=== PATIENT | female | born 1955 | race African-American/Black ===

== ENCOUNTER 2017-01-15 20:32 | Inpatient (IN) | payer MEDICAID ==
[~2017-01-15] VITALS: Ht 152.4 cm; Wt 57.6 kg
[2017-01-15] MEDS ORDERED: SODIUM CHLORIDE 0.9% 1,000 ML IV ONE (21:13)
[2017-01-15 21:51] LABS: BASOPHILS % 0.2 % (0.0-2.0); HEMATOCRIT. 37.6 % (36.0-48.0); HEMOGLOBIN. 12.6 g/dL (12.0-16.0); LYMPHOCYTES % 50.1 % (20.0-50.0); MEAN CORPUSCULAR HEMOGLOBIN 29.9 pg (28.0-32.0); MEAN CORPUSCULAR VOLUME 88.9 fL (81.0-99.0); MEAN PLATELET VOLUME 10.4 fl (7.4-10.4); MONOCYTES % 10.4 % (2.0-8.0); NEUTROPHILS % 38.3 % (40.0-76.0); PLATELET 156 x1000/uL (130-400); RED BLOOD CELL COUNT 4.23 mill/uL (4.2-5.4)
[2017-01-15 22:02] LABS: CARBON DIOXIDE 29 mEq/L (21-32); CHLORIDE 108 mEq/L (98-107); ETHANOL BLOOD < 10 mg/dL
[2017-01-16] MEDS ORDERED: ASPIRIN 325MG TABLET PO ONE
[2017-01-16 02:30] VITALS: BP 131/80
[2017-01-16] MEDS ORDERED: TRAZ-129 PO (03:18)
[2017-01-16 04:00] VITALS: BP 121/81
[2017-01-16 08:00] VITALS: BP 116/76
[2017-01-16] MEDS ORDERED: ACETAMINOPHEN 325MG TABLET PO PRN (08:30)
[2017-01-16] MEDS ORDERED: ONDANSETRON HCL 4MG/2ML VIAL IV PRN (08:30)
[2017-01-16] MEDS ORDERED: ASPIRIN 81MG EC TABLET PO SCH (09:00)
[2017-01-16] MEDS: SODIUM CHLORIDE 0.9% 1,000 ML IV SCH (09:38)
[2017-01-16 12:00] VITALS: BP 117/78
[2017-01-16] MEDS ORDERED: IOHEXOL-350 100 ML BOTTLE ONE (14:41)
[2017-01-16] MEDS ORDERED: SODIUM CHLORIDE 0.9% 10ML VIAL ONE (14:41)
[2017-01-16 16:00] VITALS: BP 120/76
[2017-01-16 20:00] VITALS: BP 100/70
[2017-01-16 22:30] LABS: CLARITY URINE CLEAR (CLEAR); COLOR URINE DARK YELLOW (YELLOW); GLUCOSE URINE NEGATIVE (NEGATIVE); KETONES URINE TRACE (NEGATIVE); LEUKOCYTE ESTERASE URINE NEGATIVE (NEGATIVE); NITRITE URINE NEGATIVE (NEGATIVE); OCCULT BLOOD URINE NEGATIVE (NEGATIVE); PROTEIN URINE TRACE (NEGATIVE); SPECIFIC GRAVITY URINE 1.031 (1.005-1.030)
[2017-01-16 22:40] LABS: *AMPHETAMINES SCREEN URINE NEGATIVE (NEGATIVE); *BARBITURATES SCREEN URINE NEGATIVE (NEGATIVE); *BENZODIAZEPINES SCREEN URINE NEGATIVE (NEGATIVE); *COCAINE SCREEN URINE NEGATIVE (NEGATIVE); CANNABINOID URINE SCREEN NEGATIVE (NEGATIVE); METHADONE URINE SCREEN NEGATIVE (NEGATIVE); OPIATES URINE SCREEN NEGATIVE (NEGATIVE); PHENCYCLIDINE URINE SCREEN NEGATIVE (NEGATIVE)
[2017-01-17] VITALS: BP 115/70
[2017-01-17 04:00] VITALS: BP 123/70
[2017-01-17] MEDS: SODIUM CHLORIDE 0.9% 1,000 ML IV SCH ×2 (05:36→13:41)
[2017-01-17 06:53] LABS: BASOPHILS % 0.3 % (0.0-2.0); EOSINOPHILS % 1.4 % (0.0-5.0); HEMATOCRIT. 37.9 % (36.0-48.0); HEMOGLOBIN. 12.5 g/dL (12.0-16.0); LYMPHOCYTES % 57.6 % (20.0-50.0); MEAN CORPUSCULAR HEMOGLOBIN 29.8 pg (28.0-32.0); MEAN PLATELET VOLUME 10.5 fl (7.4-10.4); NEUTROPHILS % 31.7 % (40.0-76.0); PLATELET 145 x1000/uL (130-400); RED BLOOD CELL COUNT 4.21 mill/uL (4.2-5.4); RED CELL DISTRIBUTION WIDTH 14.2 % (11.6-14.6)
[2017-01-17 07:22] LABS: CARBON DIOXIDE 20 mEq/L (21-32); CHLORIDE 110 mEq/L (98-107)
[2017-01-17 07:49] LABS: HDL CHOLESTEROL 50 mg/dL (40-59); LDL CHOLESTEROL 119 mg/dL (5-100); T4 FREE 0.73 ng/dL (0.76-1.46)
[2017-01-17 08:00] VITALS: BP 118/72
[2017-01-17] MEDS ORDERED: ASPIRIN 325MG EC TABLET PO SCH (09:00)
[2017-01-17] MEDS: CLOPIDOGREL 75MG TABLET PO SCH (10:44)
[2017-01-17 16:00] VITALS: BP 124/74
[2017-01-17 20:00] VITALS: BP 136/92
[2017-01-17] MEDS: ATORVASTATIN CALCIUM 20MG TABLET PO SCH (20:45)
[2017-01-18] VITALS: BP 115/74
[2017-01-18 04:00] VITALS: BP 92/68
[2017-01-18 08:00] VITALS: BP 124/73
[2017-01-18] MEDS: CLOPIDOGREL 75MG TABLET PO SCH (08:10)
[2017-01-18] MEDS: SODIUM CHLORIDE 0.9% 1,000 ML IV SCH (08:11)
[2017-01-18 12:00] VITALS: BP 116/63
[2017-01-18 15:49] VITALS: BP 115/69
[2017-01-18 20:00] VITALS: BP 120/69
[2017-01-18] MEDS: ATORVASTATIN CALCIUM 20MG TABLET PO SCH (21:37)
[2017-01-19] VITALS (7 sets, daily range): BP systolic 103–121; BP diastolic 62–75
[2017-01-19] MEDS: SODIUM CHLORIDE 0.9% 1,000 ML IV SCH (04:43)
[2017-01-19] MEDS: CLOPIDOGREL 75MG TABLET PO SCH (08:44)
[2017-01-19] MEDS ORDERED: GADOBENATE DIMEGLUMINE 529 MG/ML 10ML IV ONE (14:42)
[2017-01-19] MEDS: ATORVASTATIN CALCIUM 20MG TABLET PO SCH (21:55)
[2017-01-20] VITALS: BP 101/71
[2017-01-20 04:00] VITALS: BP 108/60
[2017-01-20] MEDS: SODIUM CHLORIDE 0.9% 1,000 ML IV SCH (05:19)
[2017-01-20] MEDS: CLOPIDOGREL 75MG TABLET PO SCH (08:13)
[2017-01-20 08:19] VITALS: BP 112/70
[2017-01-20 09:06] LABS: DILUTE RUSSELL VIPER VENOM TME 33.5 sec (0.0-47.0)
[2017-01-20 13:12] LABS: ANTI-CARDIOLIPIN AB IGA < 9 APL U/mL (0-11); ANTI-CARDIOLIPIN AB IGG < 9 GPL U/mL (0-14); ANTI-CARDIOLIPIN AB IGM 9 MPL U/mL (0-12)
== END 2017-01-20 14:40 | disposition home or self-care (01) | DRG 45 ==
LOC: ER 22:03 → EDBEDREQTM 01-16 00:22 → EDBEDREQ 01-16 00:22 → 8WST 01-16 00:22 → ENRESERV 01-16 00:28
PROVIDERS: ADMIT Internal Medicine; ATTEND Internal Medicine
DX: I63.9 Cerebral infarction, unspecified (principal); E87.8 Other disorders of electrolyte and fluid balance, not elsewhere classified; I10 Essential (primary) hypertension; E78.5 Hyperlipidemia, unspecified; F17.200 Nicotine dependence, unspecified, uncomplicated; R26.9 Unspecified abnormalities of gait and mobility
CPT/HCPCS: 36415; 70496; 70498; 70551; 70552; 80048; 80053; 80061; 80305; 81001; 81400; 81403; 81407; 81479; 82607; 82746; 82962; 83036; 84439; 84443; 84481; 85025; 85300; 85303; 85306; 85613; 85651; 86038; 86147; 92523; 92610; 93306; 93970; 96360; 96361; 97162; 99291; A4216; A9577; G0482; J7030; Q9967